=== PATIENT | male | born 1960 | race Caucasian/White ===

== ENCOUNTER 2017-10-26 08:21 | Emergency (ER) | payer BC ==
[2017-10-26] MEDS ORDERED: Triple Antibiotic 0.94 gm Pkt TP STA (08:56)
[2017-10-26] MEDS ORDERED: Bacitracin pkt 1 gm Pkt TP ONE (08:58)
[2017-10-26] MEDS ORDERED: Triple Antibiotic 0.94 gm Pkt TP ONE (09:00)
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
== END 2017-10-26 09:40 | disposition home or self-care (01) ==
LOC: ER 08:21
DX: S79.921A Unspecified injury of right thigh, initial encounter (principal); W45.8XXA Other foreign body or object entering through skin, initial encounter; Y93.89 Activity, other specified; Y92.89 Other specified places as the place of occurrence of the external cause; Y99.8 Other external cause status
CPT/HCPCS: 99284; 96372; 90715; J0696; Z7502; Z7610